=== PATIENT | female | born 1980 | race Caucasian/White ===

== ENCOUNTER 2016-07-10 16:10 | Emergency (ER) | payer MEDICARE, OTHER ==
[~2016-07-10 16:10] MED LIST: ACETAMINOPHEN PO; ALB/IPRATROPIUM/1 E1 INH; ALPRAZOLAM PO; AMITRYPTYLINE PO; ASPIRIN; ASPIRIN PO; ASPIRIN325 M1 PO; BACLOFEN10 MG PO; BACTRIM DS TABL1 TAB PO; BACTRIM PO; BENTYL20 M1 PO; CELEBREX PO; CELEXA; CIPRO PO; CYMBALTA30 M1 PO; DEPAKOTE; DICLOFENAC PO; DIFLUCAN200 MG PO; DITROPAN5 MG PO; ESGIC CAPSULE1 CAP PO; FIORINAL CAPSUL1 CAP PO; FLEXERIL PO; FLEXERIL10 MG; FLEXERIL10 MG PO; FLOMAX0.4 M1 PO; FLONASE ALLERG9.9 ML; FLONASE16 GM; IBUPROFEN PO; IMITREX; IMITREX PO; INDERAL LA PO; INTERMEZZO3.5 MG SL; KEFLEX500 MG PO; LEXAPRO; LUNESTA PO; LUNESTA1 MG; LUNESTA1 MG PO; LYRICA; LYRICA PO; LYRICA200 MG PO; LYRICA50 MG PO; MACROBID100 M1 PO; MACRODANTIN PO; MIDRIN CAPSULE1 CA1 PO; MINOCIN100 M1 PO; MINOCYCLINE HC100 M1 PO; NAPROSYN500 MG PO; NEURONTIN; NEURONTIN PO; OMEPRAZOLE40 M1 PO; ORUDIS75 M1 DOB; PENTOXIFYLINE100 GM; PENTOXIFYLINE100 GM PO; PENTOXIFYLLINE25 GM; PERCOCET 10/3251 TAB PO; PERCOCET10 PO; PERCOCET5/325 PO; PERCOCET7.5; PHENERGAN PO; PHENERGAN25 M1 DOB; PHENERGAN25 M1 PO; PHENERGAN25 MG PO; PINDOLOL5 MG PO; PROAIR HFA8.5 GM IN; PROPRANOLOL PO; PROZAC PO; PROZAC40 M1 PO; PYRIDIUM PO; RELPAX20 MG PO; ROBAXIN 750750 M1 PO; ROBAXIN500 MG; SINGULAIR PO; SOMA250 MG PO; SPIRONOLACTONE-1 TAB PO; SUMATRIPTA6 MG/0.53 SQ; SYMBICORT INH; TEMAZEPAM PO; TEMAZEPAM30 MG PO; TENEX1 MG PO; TOPAMAX; TOPAMAX PO; TOPAMAX200 MG PO; TRAZODONE PO; TRENTAL; TRENTAL PO; TRENTAL400 MG PO; TREXIMET; TREXIMET PO; TROKENDI XR25 MG PO; TYLOX 5/500 CAP1 CAP PO; ULTRAM PO; VERAPAMIL ER180 M1 PO; VICODIN 5/500 T1 TAB PO; VOLTAREN75 MG; VOLTAREN75 MG PO; XANAX0.5 M1; XANAX1 MG PO; XANAX2 MG PO; ZESTORETIC 20-1 EAC1 PO; ZIPSOR25 MG PO; ZOFRAN ODT4 MG PO; ZOFRANODT PO; ZOMIG ZMT5 MG/TAB PO; [UNRECOGNIZED DRUG - OTHER]; [UNRECOGNIZED DRUG - OTHER]; [UNRECOGNIZED DRUG - OTHER]; [UNRECOGNIZED DRUG - OTHER] PO
== END 2016-07-10 16:29 | disposition left against medical advice (07) ==
LOC: SED 16:10
DX: Z53.21 Procedure and treatment not carried out due to patient leaving prior to being seen by health care provider (principal)

== ENCOUNTER → 2016-07-15 | Outpatient (CLI) | payer MEDICARE, OTHER ==
--- NOTE | ~2016-07-15 | US128 ---
[id number] [facility] [address] [place], [place] [address] [id number] O MR#: [id number] Acc #: [id number] NAME: NICK OCONNELL : 1980 SEX: F STUDY DATE/TIME: 07/15/2016 15:14 UNIT: [facility] ROOM: STUDY DESCRIPTION: Thyroid Attending Physician: Chad Marcano M.D. Ordering Physician: Chad Marcano M.D. Primary Care Physician: Chad Marcano M.D. MEDICAL IMAGING REPORT This report is preliminary unless electronic signature is present EXAM Thyroid ultrasound INDICATIONS Difficulty swallowing. Cough. History of thyroid nodules. COMPARISON Thyroid ultrasound 04/14/2014 FINDINGS The right lobe of the thyroid measures 3.9 x 2 x 1.7 cm. The left thyroid lobe measures 3.5 x 1.7 x 1.2 cm. The isthmus measures 0.4 cm. Echogenicity and echotexture of the background thyroid parenchyma is within normal limits. There is normal background vascularity. There is a small hypoechoic nodule in the inferior left thyroid measuring 0.4 cm. This is unchanged from the 04/14/2014 exam. IMPRESSION Benign thyroid ultrasound. Dictated by... Christopher Diaz M.D. THIS IS AN ELECTRONICALLY VERIFIED REPORT Christopher Diaz M.D. at 07/16/2016 7:53 AM Jeannette TD: 07/15/2016 18:31 JOB #: [id number] MEDICAL IMAGING REPORT Page 1 of 1 COPY
--- NOTE | ~2016-07-15 | MY6 ---
[facility] A Service of [facility] RADIOLOGY TEXT RESULTS PATIENT: NICK OCONNELL LOCATION: [facility] : [birth year] UNIT #: [id number] AGE: [address]: Chad Marcano MD SEX: F ORDER DR: [id number] [facility] [address] [place], [place] [address] [id number] O MR#: [id number] Acc #: [id number] NAME: NICK OCONNELL : 1980 SEX: F STUDY DATE/TIME: 07/15/2016 15:05 UNIT: [facility] ROOM: STUDY DESCRIPTION: MY Mammogram Dx Dig Jose Juan Attending Physician: Chad Marcano M.D. Ordering Physician: Chad Marcano M.D. Primary Care Physician: Chad Marcano M.D. MEDICAL IMAGING REPORT This report is preliminary unless electronic signature is present EXAM 1. Bilateral diagnostic mammogram with CAD, 07/15/2016 2. Bilateral breast ultrasound. HISTORY 36-year female with tender and painful bilateral breasts. History OF breast cysts. No personal history of breast cancer. FINDINGS MAMMOGRAM: CC, MLO and ML views of both breasts were obtained. The background breast parenchyma consists of scattered fibroglandular densities. No suspicious mass, microcalcification, or architectural distortion. No significant change from the 10/07/2012 comparison. Given the symptoms of pain and history of breast cysts, the diagnostic ultrasound was performed. BILATERAL ULTRASOUND: Winter-scale and color ultrasound of both breasts were obtained. No suspicious findings are identified. No evidence of a suspicious mass. At the right breast, 11 o'clock position, 1 cm from the nipple there is a small cyst measuring 0.7 cm. There is a small cyst at the 3 o'clock position left breast measuring 0.7 cm. This is approximately 8 cm from the nipple. A third left breast cyst at 11 o'clock, 5 cm from the nipple measures 0.7 cm. IMPRESSION 1. Benign mammogram and ultrasound. There are a few benign breast cysts. 2. BIRADS 2. RECOMMENDATIONS Annual screening mammogram starting at age 40. Patients over the age of 40 are entered into a reminder system with target STS. [facility] A Service of [facility] RADIOLOGY TEXT RESULTS PATIENT: NICK OCONNELL LOCATION: [facility] : [birth year] UNIT #: [id number] AGE: [address]: Chad Marcano MD SEX: F ORDER DR: due date for the next mammogram. A result letter will also be sent to the patient. BIRADS: 2, benign findings. Dictated by... Christopher Diaz M.D. THIS IS AN ELECTRONICALLY VERIFIED REPORT Christopher Diaz M.D. at 07/16/2016 7:53 AM MARTINA/barrie TD: 07/15/2016 18:34 JOB #: [id number] MEDICAL IMAGING REPORT Page 1 of 1 COPY
--- NOTE | ~2016-07-15 | US24 ---
[facility] A Service [facility] RADIOLOGY TEXT RESULTS PATIENT: NICK OCONNELL LOCATION: [facility] : 78 UNIT #: [id number] AGE: [address]: Chad Marcano MD SEX: F ORDER DR: [id number] [address] [place], [place] [address] [id number] O MR#: [id number] Acc #: [id number] NAME: NICK OCONNELL : 1980 SEX: F STUDY DATE/TIME: 07/15/2016 15:25 UNIT: [facility] ROOM: STUDY DESCRIPTION: US Breast Unilateral Attending Physician: Chad Marcano M.D. Ordering Physician: Chad Marcano M.D. Primary Care Physician: Chad Marcano M.D. MEDICAL IMAGING REPORT This report is preliminary unless electronic signature is present EXAM Bilateral breast ultrasound. DATE OF EXAM 07/15/2016 CLINICAL HISTORY Bilateral breast pain. Palpable bilateral breast lumps. FINDINGS Please refer to the diagnostic mammogram report for details on the ultrasound. IMPRESSION Benign mammogram and ultrasound. Patients over the age of 40 are entered into a reminder system with target due date for the next mammogram. A result letter will also be sent to the patient. BIRADS: 2 Benign findings. Dictated by... Christopher Diaz M.D. THIS IS AN ELECTRONICALLY VERIFIED REPORT Christopher Diaz M.D. at 07/16/2016 9:43 AM MARTINA/foreign TD: 07/15/2016 18:38 JOB #: [id number] [facility] A Service [facility] RADIOLOGY TEXT RESULTS PATIENT: NICK OCONNELL LOCATION: [facility] : 78 UNIT #: [id number] AGE: [address]: Chad Marcano MD SEX: F ORDER DR: MEDICAL IMAGING REPORT Page 1 of 1 COPY
== END | disposition home or self-care (01) ==
LOC: CMAM 14:31
DX: E04.1 Nontoxic single thyroid nodule (principal); N63 Unspecified lump in breast
CPT/HCPCS: 76536; 76641; G0204

== ENCOUNTER 2016-10-25 11:00 | Emergency (ER) | payer MEDICARE, OTHER ==
[~2016-10-25] VITALS: Ht 163.8 cm; Wt 113.4 kg
--- NOTE | ~2016-10-25 | CT4 ---
[facility] A Service of [facility] RADIOLOGY TEXT RESULTS PATIENT: NICK OCONNELL LOCATION: [facility] : 78 UNIT #: [id number] AGE: [address]: Oits Clinton MD SEX: F ORDER DR: [id number] [facility] [address] [place], [place] [address] [id number] E MR#: [id number] Acc #: [id number] NAME: NICK OCONNELL : 1980 SEX: F STUDY DATE/TIME: 10/25/2016 13:32 UNIT: [facility] ROOM: STUDY DESCRIPTION: CT Abd and Pelv Wo Cont Attending Physician: Otis Clinton M.D. Ordering Physician: Otis [id number] Sam Clinton Primary Care Physician: Chad Marcano M.D. MEDICAL IMAGING REPORT This report is preliminary unless electronic signature is present EXAM CT scan of the abdomen and pelvis without contrast HISTORY Left flank pain vomiting for a week. History of kidney stones. COMPARISON 05/02/2016. TECHNIQUE Axial 3 mm images were obtained through the abdomen and pelvis without IV or oral contrast. This CT exam was performed with one or more of the following radiation dose reduction techniques: automatic control, adjustment of mA and/or kV according to patient size, and iterative reconstruction. FINDINGS Lung bases are clear. The liver, gallbladder, pancreas, adrenal glands and kidneys are normal except for a nonobstructing 2 mm stone in lower pole of the right kidney and a nonobstructing 5 mm stone in lower pole of the left kidney. The spleen is slightly enlarged at 16 cm in diameter. There is no hydronephrosis and the ureters are normal in caliber. The aorta is normal in size and there is no adenopathy. The bowel is normal. The appendix is normal. The bladder is normal. The uterus has been removed and there are no adnexal masses. The bones are unremarkable. There is an electronic stimulator in the left flank with a wire extending into the spine. IMPRESSION 1. No ureteral stones are identified. There is a single nonobstructing renal stone bilaterally. 2. Normal appendix. 3. Mild splenomegaly which is unchanged from 12/30/2016. [facility]. [facility] A Service of [facility] RADIOLOGY TEXT RESULTS PATIENT: NICK OCONNELL [id number] [birth year] UNIT #: [id number] AGE: [address]: Otis Clinton MD SEX: F ORDER DR: Dictated by... Jass Coello M.D. THIS IS AN ELECTRONICALLY VERIFIED REPORT Jass Coello M.D. at 10/26/2016 9:36 PM TRAVON/rnr TD: 10/26/2016 05:39 JOB #: [id number] MEDICAL IMAGING REPORT Page 1 of 1 COPY
[2016-10-25 12:01] LABS: BASOPHIL% 0.3 % (0-2.5); DIFF IND YES; EOSINOPHIL# 0.1 X10e3 (0-0.7); EOSINOPHIL% 0.8 % (0.0-7.0); HEMATOCRIT 37.2 % (35.0-45.0); HEMOGLOBIN 12.1 gm/dL (12.0-16.0); LYMPHOCYTE# 10.1 X10e3 (1.0-3.5); LYMPHOCYTE% 70.2 % (17.0-45.0); MEAN CORPUSCULAR HEMOGLOBIN 27.7 PG (28-34); MEAN CORPUSCULAR HGB CONC 32.6 g/dL (30-36); MEAN PLATELET VOLUME 9.9 FL (6.5-11.5); MONOCYTE# 1.4 X10e3 (0-1.0); MONOCYTE% 9.6 % (3.0-12.0); NEUTROPHIL# 2.7 X10e3 (1.5-7.1); NEUTROPHIL% 19.1 % (40-75); PLATELET COUNT 167 X10e3 (140-420); RED BLOOD COUNT 4.37 X10e (3.90-5.30); RED CELL DISTRIBUTION WIDTH 16.4 % (11.0-15.5); WHITE BLOOD COUNT 14.4 X10e3 (4.0-10.5)
[2016-10-25 12:27] LABS: BILIRUBIN, DIRECT 0.2 mg/dL (0.0-0.2); BILIRUBIN,INDIRECT 0.6 mg/dL (0.0-0.9); BILIRUBIN,TOTAL 0.8 mg/dL (0.2-2.0); BUN/CREATININE RATIO 8.33; CALCIUM SERUM 8.2 mg/dL (8.4-10.2); CREATININE SERUM 0.6 mg/dL (0.6-1.4); GLOM FILT RATE Estimated 116.4 mL/min (>60); POTASSIUM 4.1 mmol/L (3.5-5.1); PROTEIN TOTAL SERUM 5.5 g/dL (6.0-8.3)
[2016-10-25 12:29] LABS: ANISOCYTOSIS SL
[2016-10-25 12:30] LABS: PLATELET ESTIMATE NORMAL (NORMAL)
[2016-10-25 14:02] LABS: URINE SOURCE CLEAN CATCH
[2016-10-25 14:14] LABS: URINE APPEARANCE CLEAR; URINE BILIRUBIN NEG (NEG); URINE BLOOD NEG (NEG); URINE COLOR YELLOW; URINE GLUCOSE NEG (NEG); URINE KETONE NEG (NEG); URINE LEUKOCYTE ESTERASE NEG (NEG); URINE NITRATE NEG (NEG); URINE PH 6.5 (5-8); URINE PROTEIN NEG (NEG); URINE SPECIFIC GRAVITY 1.013 (1.003-1.035); URINE UROBILINOGEN 0.2 MG/DL (NEG)
[2016-10-25 14:25] LABS: CULTURE INDICATED? NO
== END 2016-10-25 15:20 | disposition home or self-care (01) ==
LOC: CED 11:00
PROVIDERS: Emergency Medicine
DX: R11.2 Nausea with vomiting, unspecified (principal); R10.9 Unspecified abdominal pain; F43.10 Post-traumatic stress disorder, unspecified
CPT/HCPCS: 36415; 74176; 80048; 80076; 81003; 83690; 85025; 96361; 96374; 96375; 99284; J1885; J2405